=== PATIENT | female | born 1960 | race Caucasian/White ===

== ENCOUNTER 2021-03-10 15:41 | Emergency (ER) | payer OTHER, SELFPAY ==
--- NOTE | 2021-03-10 15:45 | DI.RAD_ITS ---
Exam(s) XR WRIST RT COMPL NAVICULAR EXAM: XR WRIST RT COMPL NAVICULAR CLINICAL HISTORY: FOOSH, pain over snuffbox. TECHNIQUE: 2D digital imaging was performed. COMPARISON: No exams were available for comparison FINDINGS: BONES: No acute fracture is present. No bony destructive lesion is seen. Cyst distal pole scaphoid. JOINTS: The carpal bones are normally aligned. Degenerative changes 1st carpal metacarpal joint. SOFT TISSUE: Normal. IMPRESSION: Degenerative changes 1st carpal meta carpal joint. No fracture is visible. DATA REPOSITORY: RADIATION DOSE DELIVERED:
[2021-03-10 15:47] VITALS: BP 127/74; PULSE 75; RESP 18; TEMP 36.6; O2SAT 96
--- NOTE | 2021-03-10 15:56 | ED.GENADUL_ITS ---
Discharge Plan Disposition Patient Disposition: HOME Condition: Good Discharge Details Clinical Impression: Acute wrist pain Primary Care Provider: Unknown,Unknown ED Provider: Allie Carey Home Meds and New Rx's Prescriptions: Continued ibuprofen 400 mg Tablet 400 mg PO Q6H PRNRF: 0 Discharge Instructions Instructions: Wrist Injury (ED) Additional Instructions: X-ray is reassuring. If radiologist finds something else, I will call you. Referral has been sent to orthopedics. Please call tomorrow to schedule appointment. Encourage rest, ice, elevation. Tylenol and/or Ibuprofen as needed for discomfort. Please continue with brace until seen by orthopedics. If you devleop new/worsening symptoms please seek care urgently once again. Referral for local primary care has also been sent. Referrals: Dany Fang MD [ [facility] STAFF PHYSICIAN] - Discharge Data Discharge Date/Time-TO BE ENTERED AT DEPARTURE: 03/11/21 17:30 Medical Decision Making Patient is a pleasant 61 year old RHD female presenting today with c/c of right wrist pain after fall at work over the weekend. Denies other injury at the time of the incident. Denies N/T. No previous surgery to the wrist. No radiation of pain. Having difficulty gripping as this causes pain in the wrist. On exam, patient appears nontoxic. Full ROM of fingers and elbow. Full ROM of wrist but pain at full extension. No deformity on palpation. No discoloration. Pain with palpation over anatomical snuff box. No pain with axial loading of the thumb. Ligamentously intact. Sensation intact. 2+ distal pulses and intact capillary refill. Will obtain XR to evaluate for possible fx. She declines analgesics. FINDINGS: Bones/joints: Site of maximal pain is not indicated, please correlate clinically. Mild to moderate degenerative changes seen worse at the 1st [facility]. Probable geode in the distal scaphoid. Subtle lucency over the radial aspect of the radial metaphysis is noted which is probably projectional. Consider a follow-up radiograph in 7-10 days if symptoms persist. Soft tissues: Normal. IMPRESSION: No definite fracture. See above. Concerned for scaphoid fracture. Will place in thumb spica. Encouraged RICE. Advised tylenol and/or Ibuprofen. Paitnet will f/u with orthopedics for reevaluation and repeat imaging. Return precautiosn were discussed. All of her questions and concerns were addressed, she is in agreement with this plan. HPI General Mode of arrival: ambulatory . Date/Time Provider Initiated Documentation: 03/10/21 15:56 . Limitations to Documentation: no limitations . Information obtained by: patient and RN notes reviewed . History of Present Illness 61 year old F presents to the emergency department with the chief complaint of right wrist pain, described as moderate, with intensity rated at 6. Quality is described as aching, and is localized to the right and upper extremity. Patient reports no radiation. Patient started experiencing this day(s) and it has been constant. Immobilization improves symptom(s), Movement worsens symptoms . Patient notes no other symptoms.. Patient did receive the following treatments prior to arrival, none Related Data Home Medications Medication Instructions Recorded Confirmed ibuprofen 400 mg PO Q6H PRN 03/10/21 03/10/21 Allergies Allergy/AdvReac Type Severity Reaction Status Date / Time cephalexin [From Keflex] Allergy Other (See Unverified 03/10/21 15:49 Comment) Penicillins Allergy Other (See Unverified 03/10/21 15:49 Comment) General Stated Complaint: Orthopedic FANNY: 4 Review of Systems Constitutional Constitutional: Reports as per HPI, Denies chills, Denies fever(s), Denies headache(s) and Denies weakness ENT Ears, Nose, Mouth, and Throat: Denies headache(s) Cardiovascular Cardiovascular: Reports as per HPI Respiratory Respiratory: Reports as per HPI and Denies cough Musculoskeletal Musculoskeletal: Reports as per HPI and Denies tingling Integumentary/Breasts Skin/Breast: Reports as per HPI, Denies rash and Denies wounds Neurologic Neurologic: Reports as per HPI, Denies headache(s), Denies tingling, Denies paresthesias and Denies weakness [facility] Social History Smoking/Tobacco Use Status: Current every day Tobacco Type: cigarettes Smoking risk assessment performed?: Yes Alcohol Intake: never Substance use type: marijuana Do you feel safe at home: Yes Do you feel safe in your relationship?: Yes Exam Const General: cooperative, healthy appearing, comfortable, no acute distress, well developed and well groomed Nutritional Appearance: average body habitus and well nourished Orientation: alert and awake Resp Effort & Inspection: normal respiratory effort, able to speak in complete sentences and no respiratory distress Cardio Rate: regular rate Rhythm: regular rhythm Skin General skin exam: no rashes or lesions noted Lesions: no lesions Rashes: no rashes Trauma: no lacerations or abrasions Neuro General: patient alert and patient awake Cognition: normal cognition Speech: speech normal Gait: normal gait Motor: muscle tone normal throughout Sensory Exam: no sensory deficits noted Extrem Hand/finger images: 1. Area of discomfort. Full ROM of elbow, wrist, hand. No notable swelling. 2+ distal pulses, capillary refill intact. She has pain over snuff box, no pain with axial thumb loading. Pain with dorsiflexion of the wrist. Sensation intact. Psych Appearance: grossly normal and well kempt Mental Status: mental status grossly normal Speech and Movement: speech and movement normal Course Vital Signs Vital signs: Vital Signs Temperature 36.6 C 03/10/21 15:47 Pulse 75 03/10/21 15:47 Respiratory Rate 18 03/10/21 15:47 Blood Pressure 127/74 03/10/21 15:47 Pulse Oximetry 96 03/10/21 15:47 Temperature 36.6 C 03/10/21 15:47 Temperature Source Skin 03/10/21 15:47 Pulse 75 03/10/21 15:47 Respiratory Rate 18 03/10/21 15:47 Respiratory Effort Non-Labored 03/10/21 15:50 Blood Pressure 127/74 03/10/21 15:47 Blood Pressure Position Sitting 03/10/21 15:47 Pulse Oximetry 96 03/10/21 15:47 Oxygen Delivery Method Room Air 03/10/21 15:47 Oxygen Flow Rate 0 03/10/21 15:47 Pain Level 6 03/10/21 15:47
--- NOTE | 2021-03-10 17:33 | DI.VRAD_ITS ---
PROCEDURE INFORMATION: Exam: XR Right Wrist Exam date and time: 03/10/2021 4:56 PM Age: 61 years old Clinical indication: Pain; Other: Assalted at work TECHNIQUE: Imaging protocol: XR Right wrist. Views: 3 or more views. COMPARISON: No relevant prior studies available. FINDINGS: Bones/joints: Site of maximal pain is not indicated, please correlate clinically. Mild to moderate degenerative changes seen worse at the 1st [facility]. Probable geode in the distal scaphoid. Subtle lucency over the radial aspect of the radial metaphysis is noted which is probably projectional. Consider a follow-up radiograph in 7-10 days if symptoms persist. Soft tissues: Normal. IMPRESSION: No definite fracture. See above. Dictated and Authenticated by: Tuan Retana MD. Ordering:CLINTON Kelley MD
--- NOTE | 2021-03-11 13:28 | NUR.NOTE ---
referral to [facility] for pcp
== END 2021-03-11 17:30 | disposition home or self-care (01) ==
PROVIDERS: Emergency Provider Physician Assistant
DX: M25.531 Pain in right wrist (principal); W19.XXXA Unspecified fall, initial encounter; Y99.0 Civilian activity done for income or pay
CPT/HCPCS: 29125; 99283; 73110

== ENCOUNTER 2022-03-30 15:22 | Outpatient (REF) | payer OTHER, SELFPAY ==
[2022-03-30 19:53] LABS: ALT 15 U/L (14-59); AST 11 U/L (15-37); Alkaline Phosphatase 98 U/L (46-116); Anion Gap 9.2 mmol/L (3-11); BUN 16 mg/dL (7-18); Bilirubin, Total 0.4 mg/dL (0.2-1.0); CO2 26.8 mmol/L (21.0-32.0); CREATININE 1.1 mg/dL (0.55-1.02); Calcium 9.3 mg/dL (8.5-10.1); Calculated LDL 135 mg/dL (<100); Chloride 103 mmol/L (98-107); Cholesterol 212 mg/dL (<200); Estimated GFR 50.67 (mL/min/1.73m2); Glucose 101 mg/dL (74-106); HDL Cholesterol 49 mg/dL (40-60); Potassium 4.7 mmol/L (3.5-5.1); Sodium 139 mmol/L (136-145); Total Protein 7.6 g/dL (6.4-8.2); Triglyceride 140 mg/dL (<150)
== END 2022-03-30 15:23 | disposition home or self-care (01) ==
LOC: NCHCN 15:22
PROVIDERS: Visit Provider Nurse Practitioner Family
DX: R03.0 Elevated blood-pressure reading, without diagnosis of hypertension (principal); Z13.220 Encounter for screening for lipoid disorders
CPT/HCPCS: 80053; 80061

== ENCOUNTER 2025-07-18 16:13 | Outpatient (REF) | payer OTHER, SELFPAY ==
[2025-07-18 20:23] LABS: HCT 44.8 % (36.0-46.0); HGB 14.5 g/dL (11.2-15.7); MCH 28.8 pg (27.0-33.0); MCHC 32.4 % (32.0-36.0); MCV 89 fL (80-95); MPV 10.4 fL (8.0-11.0); Platelet Count 327 10^3/uL (130-400); RBC 5.03 10^6/uL (3.93-5.22); RDW 14.7 % (11.7-14.6); RDW-SD 48.3 fL; WBC 9.61 10^3/uL (4.4-10.8)
[2025-07-18 20:37] LABS: TSH (W/Ref FT4) 1.45 uIU/mL (0.55-4.78)
[2025-07-18 20:39] LABS: Hemoglobin A1C 6.0 % (<5.7)
[2025-07-18 20:43] LABS: ALT 16 U/L (10-49); AST 17 U/L (<34); Albumin 4.8 g/dL (3.4-5.0); Alkaline Phosphatase 97 U/L (46-116); Anion Gap 4.4 mmol/L (3-11); BUN 15 mg/dL (9-23); Bilirubin, Total 0.30 mg/dL (0.2-1.2); CO2 26.6 mmol/L (20.0-31.0); Calcium 9.7 mg/dL (8.3-10.6); Chloride 111 mmol/L (98-107); Cholesterol 183 mg/dL (<200); Glucose 109 mg/dL (74-106); HDL Cholesterol 56 mg/dL (>40); Potassium 4.1 mmol/L (3.5-5.1); Sodium 142 mmol/L (136-145); Total Protein 7.4 g/dL (5.7-8.2)
== END 2025-07-18 16:14 | disposition home or self-care (01) ==
LOC: NCHCN 16:13
PROVIDERS: PCP Nurse Practitioner Family; Visit Provider Nurse Practitioner Family
DX: Z13.1 Encounter for screening for diabetes mellitus (principal); Z13.6 Encounter for screening for cardiovascular disorders
CPT/HCPCS: 80053; 80061; 85027; 83036; 84443